=== PATIENT | male | born 1945 | race Caucasian/White ===

== ENCOUNTER → 2019-08-09 11:41 | Outpatient (CLI) | payer OTHER, SELFPAY ==
--- NOTE | 2019-08-09 11:55 | DI.CT.S_ITS ---
PROCEDURE: CT CHEST WO CON INDICATIONS: Hemothorax TECHNIQUE: Noncontrast 5 mm thick sections acquired from the pulmonary apices to the posterior costophrenic angles. 1 mm lung window, 5 mm thick coronal and sagittal and 7 mm axial MIP reformats were then acquired. For radiation dose reduction, the following was used: automated exposure control, adjustment of mA and/or kV according to patient size. COMPARISON: Outside Film, CT, CT CHEST WITH CONTRAST, 05/01/2019, 22:29. FINDINGS: Image quality: Excellent. Lungs and pleura: No acute air space opacities. Compressive atelectasis associated with a left-sided exudative appearing pleural effusion is again seen. No pleural effusion measures up to 5.9 cm at the deep posterior left costophrenic sulcus. There is mild atelectasis at the right lung base. No pleural effusions or pneumothorax. Central and peripheral airways are patent and normal in caliber. Mediastinum: Heart size is normal. No pericardial effusion. No mediastinal adenopathy by size criteria. Thoracic aorta and central pulmonary arteries are normal in size. Esophagus is normal in caliber. No hiatal hernia. Bones and chest wall: No suspicious bony lesions. No vertebral body compression fractures. No axillary or supraclavicular adenopathy by size criteria. Thyroid gland is not well-seen but is noncontrast technique. Abdomen: Visualized upper abdominal solid organs and bowel loops appear normal in the absence of contrast. IMPRESSION: There has been no appreciable improvement in the exudative appearing left pleural effusion and adjacent posterior left lower lobe lung consolidation with reference to the prior CT scanning from 05/01/19. Malignant etiology is a concern given this persistence, and cytology evaluation through thoracentesis would be recommended if this has not yet been performed. Dictated by: Joshua Norris M.D. on 08/09/2019 at 12:46 Approved by: Joshua Norris M.D. on 08/09/2019 at 12:53
== END ==
PROVIDERS: Referring Provider Internal Medicine; Visit Provider Internal Medicine
DX: J94.2 Hemothorax (principal)
CPT/HCPCS: 71250

== ENCOUNTER → 2024-07-22 10:21 | Outpatient (CLI) | payer OTHER, SELFPAY ==
--- NOTE | 2024-07-22 10:24 | DI.MRI.S_ITS ---
PROCEDURE: MR LUMBAR SPINE WO CON INDICATIONS: SPINAL STENOSIS TECHNIQUE: Noncontrast sagittal T1 spin echo and T2 fast echo, sagittal STIR, and T2 fast spin echo through the lumbar spine. In cases with scoliosis, additional coronal T2 fast spin echo may be performed. COMPARISON: None. FINDINGS: Image quality: Excellent. Alignment and Curvature: There is normal bony alignment. Bone Marrow: Marrow is of normal overall signal. No acute vertebral body compression fractures. Spinal Cord: Conus medullaris terminates at the L2 level. Visualized cord demonstrates normal signal and size. Paraspinous Soft Tissues: No paravertebral masses. T12-L1: Disc desiccation. Facet arthropathy. No central canal or neural foraminal stenosis. L1-L2: Disc desiccation and mild height loss. Minimal disc bulge. Facet arthropathy. No central canal stenosis. No significant neural foraminal stenosis. L2-L3: Disc desiccation and mild height loss. Diffuse disc bulge. Facet arthropathy and thickening of ligamentum flavum. Epidural lipomatosis. Moderate to severe central canal stenosis. Moderate bilateral neural foraminal stenosis. L3-L4: Disc desiccation and diffuse disc bulge. Facet arthropathy and thickening of ligamentum flavum. Moderate central canal stenosis. Severe right and moderate left neural foraminal stenosis. L4-L5: Disc desiccation and mild diffuse disc bulge. Facet arthropathy and thickening of ligamentum flavum. Mild to moderate central canal stenosis. Severe bilateral neural foraminal stenosis. L5-S1: Disc desiccation. Facet arthropathy. No central canal stenosis. Severe bilateral neural foraminal stenosis. IMPRESSION: 1. Multilevel degenerative changes of the lumbar spine as described above. 2. Moderate to severe central canal stenosis at L2-L3. Moderate central canal stenosis at L3-L4. 3. Severe neural foraminal stenosis on the right at L3-L4 and bilaterally at L4-5 and L5-S1. Dictated by: Raghav Moncada M.D. on 07/24/2024 at 12:48 Approved by: Raghav Moncada M.D. on 07/24/2024 at 12:51
== END ==
PROVIDERS: PCP Nurse Practitioner Primary Care; Referring Provider Anesthesiology Pain Medicine; Visit Provider Anesthesiology Pain Medicine
DX: M48.062 Spinal stenosis, lumbar region with neurogenic claudication (principal); M48.07 Spinal stenosis, lumbosacral region; M47.816 Spondylosis without myelopathy or radiculopathy, lumbar region; M47.817 Spondylosis without myelopathy or radiculopathy, lumbosacral region
CPT/HCPCS: 72148